=== PATIENT | male | born 1985 | race Caucasian/White ===

== ENCOUNTER 2017-07-16 10:12 | Inpatient (IN) | payer OTHER ==
[~2017-07-16 10:12] MED LIST: ACETAMINOPHEN 1000 MG/100 ML IVPB; ROCURONIUM 50 MG INJ
[2017-07-16] MEDS ORDERED: MIDAZOLAM 1 MG/ML 2 ML INJ (11:36)
[2017-07-16] MEDS ORDERED: PROPOFOL 100 ML ×3 (11:36→15:40)
[2017-07-16] MEDS ORDERED: ROCURONIUM 50 MG INJ (11:36)
[2017-07-16] MEDS ORDERED: GELATIN SIZE 100 SPONGE (11:45)
[2017-07-16] MEDS ORDERED: BUPIVACAINE 0.5% (SDV) 30 ML INJ (11:46)
[2017-07-16] MEDS ORDERED: CEFAZOLIN 1 GM INJ ×2 (11:50→16:07)
[2017-07-16] MEDS ORDERED: SODIUM CL BACTERIOSTATIC 30 ML INJ (11:53)
[2017-07-16] MEDS ORDERED: LABETALOL HCL 20MG INJ IV (12:00)
[2017-07-16] MEDS ORDERED: ONDANSETRON 4 MG INJ IV (12:00)
[2017-07-16] MEDS ORDERED: HYDROmorphONE (0.2 MG/ML) 10ML SYG IV ×3 (12:00)
[2017-07-16] MEDS ORDERED: FENTAnyl 50 MCG/ML VIAL IV ×2 (12:00)
[2017-07-16] MEDS ORDERED: OXYCODONE/ACETAMINOPHEN (5/325) TAB PO ×2 (12:00)
[2017-07-16] MEDS ORDERED: METOCLOPRAMIDE 10 MG INJ IV (12:00)
[2017-07-16] MEDS ORDERED: ALBUMIN HUMAN 5% 250 ML IV (12:00)
[2017-07-16] MEDS ORDERED: EPHEDrine SULFATE 50 MG/5 ML SYG IV (12:00)
[2017-07-16] MEDS: D5W-0.45 NACL + KCL 20 MEQ 1,000 ML IV ×3 (14:21→23:47)
[2017-07-16] MEDS ORDERED: NALOXONE (0.4 MG/ML) INJ IV (14:30)
[2017-07-16] MEDS ORDERED: HYDROmorphONE 0.5 MG/0.5 ML SYG IV (14:30)
[2017-07-16] MEDS ORDERED: CEPASTAT LOZENGE MT (14:30)
[2017-07-16] MEDS ORDERED: ZOLPIDEM 5 MG TAB PO (14:30)
[2017-07-16] MEDS ORDERED: ACETAMINOPHEN 325 MG TAB PO (14:30)
[2017-07-16] MEDS ORDERED: DEXAMETHASONE 4 MG/ML 1 ML INJ (14:30)
[2017-07-16] MEDS ORDERED: METOCLOPRAMIDE 10 MG INJ (14:30)
[2017-07-16] MEDS ORDERED: AL HYDROX/MG HYDROX/SIMETH 30 ML CUP PO (14:30)
[2017-07-16] MEDS ORDERED: DIPHENHYDRAMINE 50 MG INJ IV (14:30)
[2017-07-16] MEDS ORDERED: ONDANSETRON 4 MG INJ (14:30)
[2017-07-16] MEDS ORDERED: BISACODYL 10 MG SUPP PR (14:30)
[2017-07-16] MEDS ORDERED: ACETAMINOPHEN 1000MG/100ML IV 100 ML (14:37)
[2017-07-16] MEDS: SURGIFOAM POWDER 1 GM KIT (15:34)
[2017-07-16] MEDS: HEPARIN 1000 UNITS/ML 10 ML INJ ×2 (15:34→15:35)
[2017-07-16] MEDS: CEFAZOLIN 1 GM INJ (15:34)
[2017-07-16] MEDS: THROMBIN 5000 UNIT VIAL ×2 (15:35→15:36)
[2017-07-16] MEDS: LIDOCAINE 1%/EPI 30 ML INJ (15:37)
[2017-07-16] MEDS ORDERED: SUGAMMADEX SODIUM 200 MG/2 ML VIAL IV (16:03)
[2017-07-16] MEDS ORDERED: PHENYLephrine (100 MCG/ML) 5ML SYG (16:08)
[2017-07-16] MEDS ORDERED: NALOXONE (0.4 MG/ML) INJ (16:27)
[2017-07-16] MEDS: MEPERIDINE 25 MG INJ IV (16:47)
[2017-07-16] MEDS: FENTAnyl 50 MCG/ML VIAL IV ×2 (17:08→17:15)
[2017-07-16] MEDS: DIPHENHYDRAMINE 50 MG INJ IV (17:11)
[2017-07-16] MEDS: CEFAZOLIN 1 GM/50 ML (PMX) 50 ML IVPB ×2 (17:19→21:59)
[2017-07-16] MEDS: HYDROmorphONE 0.2 MG/ML PCA IV (17:28)
[2017-07-16] MEDS: DOCUSATE SODIUM 100 MG CAP PO (20:17)
[2017-07-17 05:15] LABS: ADD MAN DIFF? NO
[2017-07-17 05:16] LABS: HEMATOCRIT 36.5 % (42.0-52.0); HEMOGLOBIN 12.8 g/dl (14.0-18.0); LYMPHOCYTES # 0.8 10^3/ul (0.8-2.9); LYMPHOCYTES % 7.5 % (15.0-51.0); MEAN CORPUSCULAR HEMOGLOBIN 30.6 pg (29.0-33.0); MEAN CORPUSCULAR HGB CONC 35.1 g/dl (32.0-37.0); MEAN CORPUSCULAR VOLUME 87.3 fl (82.0-101.0); MEAN PLATELET VOLUME 10.4 fl (7.4-10.4); MONOCYTE # 0.7 10^3/ul (0.3-0.9); MONOCYTES % 6.1 % (0.0-11.0); NEUTROPHIL # 9.3 10^3/ul (1.6-7.5); NEUTROPHILS % 86.1 % (39.0-77.0); PLATELET COUNT 195 10^3/UL (140-415); RED BLOOD COUNT 4.18 10^6/ul (4.70-6.10); RED CELL DISTRIBUTION WIDTH 12.2 % (11.5-14.5)
[2017-07-17 05:16] LABS: WHITE BLOOD COUNT 10.8 10^3/ul (4.8-10.8)
[2017-07-17 05:56] LABS: ANION GAP 17 (8-16); BLOOD UREA NITROGEN 12 mg/dl (7-20); CALCIUM 8.8 mg/dl (8.4-10.2); CARBON DIOXIDE 27 mmol/L (21-31); CHLORIDE 103 mmol/L (97-110); CREATININE 0.93 mg/dl (0.61-1.24); GLUCOSE 166 mg/dl (70-220); MAGNESIUM 1.6 mg/dl (1.7-2.5); POTASSIUM 4.2 mmol/L (3.5-5.1); SODIUM 143 mmol/L (135-144)
[2017-07-17] MEDS: CEFAZOLIN 1 GM/50 ML (PMX) 50 ML IVPB (06:23)
[2017-07-17] MEDS: HYDROmorphONE 0.2 MG/ML PCA IV ×2 (06:30→23:50)
[2017-07-17] MEDS: ONDANSETRON 4 MG INJ IV (06:31)
[2017-07-17] MEDS: DOCUSATE SODIUM 100 MG CAP PO ×2 (09:05→20:16)
[2017-07-17] MEDS: MAGNESIUM OXIDE 400 MG TAB PO ×2 (09:06→20:16)
[2017-07-17] MEDS: D5W-0.45 NACL + KCL 20 MEQ 1,000 ML IV ×2 (10:21→20:21)
[2017-07-17] MEDS: CYCLOBENZAPRINE 10 MG TAB PO (23:41)
[2017-07-18 05:14] LABS: ADD MAN DIFF? NO
[2017-07-18 05:24] LABS: WHITE BLOOD COUNT 9.5 10^3/ul (4.8-10.8)
[2017-07-18 05:24] LABS: BASOPHILS % 0.3 % (0.0-2.0); EOSINOPHILS % 0.2 % (0.0-7.0); HEMATOCRIT 39.2 % (42.0-52.0); HEMOGLOBIN 13.5 g/dl (14.0-18.0); LYMPHOCYTES # 2.6 10^3/ul (0.8-2.9); LYMPHOCYTES % 27.2 % (15.0-51.0); MEAN CORPUSCULAR HEMOGLOBIN 30.5 pg (29.0-33.0); MEAN CORPUSCULAR HGB CONC 34.4 g/dl (32.0-37.0); MEAN CORPUSCULAR VOLUME 88.7 fl (82.0-101.0); MEAN PLATELET VOLUME 10.8 fl (7.4-10.4); MONOCYTE # 0.9 10^3/ul (0.3-0.9); MONOCYTES % 9.1 % (0.0-11.0); PLATELET COUNT 191 10^3/UL (140-415); RED BLOOD COUNT 4.42 10^6/ul (4.70-6.10); RED CELL DISTRIBUTION WIDTH 12.3 % (11.5-14.5)
[2017-07-18 05:46] LABS: ANION GAP 15 (8-16); BLOOD UREA NITROGEN 11 mg/dl (7-20); CALCIUM 9.1 mg/dl (8.4-10.2); CARBON DIOXIDE 33 mmol/L (21-31); CHLORIDE 98 mmol/L (97-110); GLUCOSE 93 mg/dl (70-220); MAGNESIUM 1.9 mg/dl (1.7-2.5); POTASSIUM 4.3 mmol/L (3.5-5.1); SODIUM 142 mmol/L (135-144)
[2017-07-18] MEDS: D5W-0.45 NACL + KCL 20 MEQ 1,000 ML IV ×2 (06:03→16:21)
[2017-07-18] MEDS: MAGNESIUM OXIDE 400 MG TAB PO ×2 (09:39→21:21)
[2017-07-18] MEDS: DOCUSATE SODIUM 100 MG CAP PO ×2 (09:39→21:21)
[2017-07-18] MEDS: HYDROCODONE/APAP (10/325) TAB PO ×3 (09:39→23:47)
[2017-07-18] MEDS ORDERED: HYDROCODONE/APAP (10/325) TAB PO (10:00)
[2017-07-19 05:56] LABS: ADD MAN DIFF? NO
[2017-07-19 05:58] LABS: WHITE BLOOD COUNT 7.3 10^3/ul (4.8-10.8)
[2017-07-19 05:58] LABS: BASOPHILS % 0.4 % (0.0-2.0); EOSINOPHILS # 0.1 10^3/ul (0.0-0.5); EOSINOPHILS % 1.6 % (0.0-7.0); HEMATOCRIT 38.4 % (42.0-52.0); HEMOGLOBIN 13.2 g/dl (14.0-18.0); LYMPHOCYTES # 2.5 10^3/ul (0.8-2.9); LYMPHOCYTES % 34.2 % (15.0-51.0); MEAN CORPUSCULAR HEMOGLOBIN 30.2 pg (29.0-33.0); MEAN CORPUSCULAR HGB CONC 34.4 g/dl (32.0-37.0); MEAN CORPUSCULAR VOLUME 87.9 fl (82.0-101.0); MEAN PLATELET VOLUME 10.4 fl (7.4-10.4); MONOCYTE # 0.8 10^3/ul (0.3-0.9); MONOCYTES % 10.6 % (0.0-11.0); NEUTROPHIL # 3.9 10^3/ul (1.6-7.5); NEUTROPHILS % 52.9 % (39.0-77.0); PLATELET COUNT 195 10^3/UL (140-415); RED BLOOD COUNT 4.37 10^6/ul (4.70-6.10); RED CELL DISTRIBUTION WIDTH 11.7 % (11.5-14.5)
[2017-07-19 06:42] LABS: ANION GAP 16 (8-16); BLOOD UREA NITROGEN 14 mg/dl (7-20); CARBON DIOXIDE 33 mmol/L (21-31); CHLORIDE 99 mmol/L (97-110); CREATININE 0.86 mg/dl (0.61-1.24); GLUCOSE 88 mg/dl (70-220); POTASSIUM 4.1 mmol/L (3.5-5.1); SODIUM 144 mmol/L (135-144)
[2017-07-19] MEDS: DOCUSATE SODIUM 100 MG CAP PO (09:14)
[2017-07-19] MEDS: HYDROCODONE/APAP (10/325) TAB PO (09:14)
[2017-07-19] MEDS: MAGNESIUM OXIDE 400 MG TAB PO (09:14)
== END 2017-07-19 15:40 | disposition home or self-care (01) | DRG 455 ==
LOC: REC 10:12 → MS1 18:30
PROC: 0SG30A0 Fusion of Lumbosacral Joint with Interbody Fusion Device, Anterior Approach, Anterior Column, Open Approach (ICD-10-PCS; principal; 2017-07-16 12:00)
PROC: 0SG0071 Fusion of Lumbar Vertebral Joint with Autologous Tissue Substitute, Posterior Approach, Posterior Column, Open Approach (ICD-10-PCS; 2017-07-16 12:00)
PROC: 0ST40ZZ Resection of Lumbosacral Disc, Open Approach (ICD-10-PCS; 2017-07-16 12:00)
PROC: 07DR3ZZ Extraction of Iliac Bone Marrow, Percutaneous Approach (ICD-10-PCS; 2017-07-16 12:00)
DX: M51.37 Other intervertebral disc degeneration, lumbosacral region (principal); M48.07 Spinal stenosis, lumbosacral region; M43.17 Spondylolisthesis, lumbosacral region; M53.2X7 Spinal instabilities, lumbosacral region
CPT/HCPCS: 72114; 80048; 83735; 85025; 86850; 86900; 86901; 86920; 86999; 87086; 97116; 97162

== ENCOUNTER → 2017-07-30 | Outpatient (CLI) | payer OTHER | END | disposition home or self-care (01) | LOC: VAS 09:33 | DX: M79.605 Pain in left leg (principal); M79.604 Pain in right leg | CPT/HCPCS: 93970 ==

== ENCOUNTER 2018-06-03 09:49 | Inpatient (IN) | payer OTHER, BC ==
[2018-06-03] MEDS: CEFAZOLIN 2 GM/50 ML (PMX) 50 ML IVPB (09:00)
[~2018-06-03 09:49] MED LIST changes: -ACETAMINOPHEN 1000 MG/100 ML IVPB; +CEFAZOLIN 1 GM INJ; +DESFLURANE 15 MIN; +GLYCOPYRROLATE 0.4 MG INJ; +LACTATED RINGER'S 1,000 ML IV*; +METOPROLOL 5 MG INJ; +NEOSTIGMINE 3 MG/3 ML SYRINGE
[2018-06-03] MEDS ORDERED: FENTAnyl 50 MCG/ML VIAL (09:57)
[2018-06-03] MEDS ORDERED: METOCLOPRAMIDE 10 MG INJ (10:02)
[2018-06-03] MEDS ORDERED: MIDAZOLAM 1 MG/ML 2 ML INJ (10:04)
[2018-06-03] MEDS ORDERED: PROPOFOL 0 ML (10:10)
[2018-06-03] MEDS ORDERED: SUCCINYLCHOLINE CHLORIDE 100 MG/5 ML SYG IV (10:10)
[2018-06-03] MEDS ORDERED: ROCURONIUM 50 MG INJ (10:10)
[2018-06-03] MEDS ORDERED: PROPOFOL 20 ML (10:11)
[2018-06-03] MEDS ORDERED: LIDOCAINE 2% (SDV) 5 ML INJ (10:11)
[2018-06-03] MEDS ORDERED: hydrALAzine 20 MG INJ IV (12:00)
[2018-06-03] MEDS ORDERED: HYDROmorphONE 1 MG/5 ML IV SYRINGE IV (12:00)
[2018-06-03] MEDS ORDERED: FENTAnyl 50 MCG/ML VIAL IV ×2 (12:00)
[2018-06-03] MEDS ORDERED: IPRATROPIUM (NEB) 0.5 MG/2.5 ML AMP HHN (12:00)
[2018-06-03] MEDS ORDERED: LABETALOL HCL 20MG INJ IV (12:00)
[2018-06-03] MEDS ORDERED: LEVALBUTEROL (NEB) 1.25 MG/0.5 ML AMP HHN (12:00)
[2018-06-03] MEDS: CA CHLORIDE 10% 10 ML SYRINGE (13:23)
[2018-06-03] MEDS: BUPIVACAINE 0.5%/EPI (SDV) 30 ML INJ (13:23)
[2018-06-03] MEDS: THROMBIN 5000 UNIT VIAL (13:24)
[2018-06-03] MEDS: HEPARIN 1000 UNITS/ML 10 ML INJ (13:24)
[2018-06-03] MEDS: POLYMYXIN/BACITRACIN 1L IRRIG (13:24)
[2018-06-03] MEDS: SURGIFOAM POWDER 1 GM KIT (13:24)
[2018-06-03] MEDS: BUPIVACAINE 0.25% (MPF) 30 ML INJ (14:32)
[2018-06-03] MEDS: FENTAnyl 50 MCG/ML VIAL (14:33)
[2018-06-03] MEDS: GELATIN SIZE 100 SPONGE (14:33)
[2018-06-03] MEDS ORDERED: CYCLOBENZAPRINE 10 MG TAB PO (15:00)
[2018-06-03] MEDS ORDERED: AL HYDROX/MG HYDROX/SIMETH 30 ML CUP PO (15:00)
[2018-06-03] MEDS ORDERED: NALOXONE (0.4 MG/ML) INJ IV (15:00)
[2018-06-03] MEDS ORDERED: HYDROCODONE/APAP (10/325) TAB PO (15:00)
[2018-06-03] MEDS ORDERED: ONDANSETRON 4 MG INJ IV (15:00)
[2018-06-03] MEDS ORDERED: BISACODYL 10 MG SUPP PR (15:00)
[2018-06-03] MEDS ORDERED: CEPASTAT LOZENGE MT (15:00)
[2018-06-03 15:32] LABS: ADD UMIC NO; UR ASCORBIC ACID NEGATIVE (NEGATIVE); UR BILIRUBIN (Dip) NEGATIVE (NEGATIVE); UR BLOOD (Dip) NEGATIVE (NEGATIVE); UR CLARITY CLEAR (CLEAR); UR COLOR STRAW (YELLOW); UR GLUCOSE (Dip) NEGATIVE (NEGATIVE); UR KETONES (Dip) NEGATIVE (NEGATIVE); UR LEUKOCYTE ESTERASE (Dip) NEGATIVE Leu/ul (NEGATIVE); UR NITRITE (Dip) NEGATIVE (NEGATIVE); UR SPECIFIC GRAVITY (Dip) 1.008 (1.003-1.030); UR TOTAL PROTEIN (Dip) NEGATIVE (NEGATIVE); UR UROBILINOGEN (Dip) NEGATIVE (NEGATIVE)
[2018-06-03] MEDS: HYDROmorphONE 1 MG/5 ML IV SYRINGE IV ×3 (15:35→15:52)
[2018-06-03] MEDS: ONDANSETRON 4 MG INJ IV (15:35)
[2018-06-03] MEDS: CEFAZOLIN 1 GM/50 ML (PMX) 50 ML IVPB ×2 (15:36→22:04)
[2018-06-03] MEDS: HYDROmorphONE 0.2 MG/ML PCA IV (15:37)
[2018-06-03] MEDS: DIPHENHYDRAMINE 50 MG INJ IV (15:51)
[2018-06-03] MEDS: MEPERIDINE 25 MG INJ IV (16:00)
[2018-06-03] MEDS: D5W-0.45 NACL + KCL 20 MEQ 1,000 ML IV (17:38)
[2018-06-03] MEDS: DOCUSATE SODIUM 100 MG CAP PO (22:04)
[2018-06-04] MEDS: D5W-0.45 NACL + KCL 20 MEQ 1,000 ML IV ×4 (00:56→20:41)
[2018-06-04] MEDS: HYDROmorphONE 0.2 MG/ML PCA IV ×2 (02:17→09:19)
[2018-06-04] MEDS: HYDROmorphONE 0.5 MG/0.5 ML SYG IV (04:23)
[2018-06-04 05:15] LABS: ADD MAN DIFF? NO
[2018-06-04 05:28] LABS: WHITE BLOOD COUNT 13.5 10^3/ul (4.8-10.8)
[2018-06-04 05:28] LABS: BASOPHILS % 0.1 % (0.0-2.0); HEMATOCRIT 38.5 % (42.0-52.0); HEMOGLOBIN 13.1 g/dl (14.0-18.0); LYMPHOCYTES # 1.1 10^3/ul (0.8-2.9); LYMPHOCYTES % 7.8 % (15.0-51.0); MEAN CORPUSCULAR HEMOGLOBIN 30.2 pg (29.0-33.0); MEAN CORPUSCULAR VOLUME 88.7 fl (82.0-101.0); MEAN PLATELET VOLUME 10.7 fl (7.4-10.4); MONOCYTE # 0.9 10^3/ul (0.3-0.9); MONOCYTES % 6.6 % (0.0-11.0); NEUTROPHIL # 11.5 10^3/ul (1.6-7.5); NEUTROPHILS % 85.1 % (39.0-77.0); PLATELET COUNT 224 10^3/UL (140-415); RED BLOOD COUNT 4.34 10^6/ul (4.70-6.10); RED CELL DISTRIBUTION WIDTH 12.5 % (11.5-14.5)
[2018-06-04] MEDS: CEFAZOLIN 1 GM/50 ML (PMX) 50 ML IVPB (05:53)
[2018-06-04] MEDS: PANTOPRAZOLE 40 MG INJ IV (05:53)
[2018-06-04 06:22] LABS: ANION GAP 10 (5-13); BLOOD UREA NITROGEN 11 mg/dl (7-20); CALCIUM 9.3 mg/dl (8.4-10.2); CARBON DIOXIDE 28 mmol/L (21-31); CHLORIDE 102 mmol/L (97-110); CREATININE 0.85 mg/dl (0.61-1.24); Estimated GFR > 60 mL/min (>60); GLUCOSE 150 mg/dl (70-220); MAGNESIUM 1.8 mg/dl (1.7-2.5); POTASSIUM 4.8 mmol/L (3.5-5.1); SODIUM 140 mmol/L (135-144)
[2018-06-04] MEDS: DOCUSATE SODIUM 100 MG CAP PO ×2 (09:14→20:41)
[2018-06-05] MEDS: DIPHENHYDRAMINE 50 MG INJ IV (02:35)
[2018-06-05] MEDS: HYDROmorphONE 0.2 MG/ML PCA IV (02:42)
[2018-06-05] MEDS: PANTOPRAZOLE (EC) 40 MG TAB PO (05:58)
[2018-06-05] MEDS: ACETAMINOPHEN 325 MG TAB PO (06:08)
[2018-06-05] MEDS: DOCUSATE SODIUM 100 MG CAP PO (09:00)
[2018-06-05 09:33] LABS: ADD MAN DIFF? NO
[2018-06-05 09:36] LABS: WHITE BLOOD COUNT 10.4 10^3/ul (4.8-10.8)
[2018-06-05 09:36] LABS: BASOPHILS % 0.3 % (0.0-2.0); EOSINOPHILS # 0.1 10^3/ul (0.0-0.5); EOSINOPHILS % 0.8 % (0.0-7.0); HEMATOCRIT 38.6 % (42.0-52.0); HEMOGLOBIN 12.7 g/dl (14.0-18.0); LYMPHOCYTES # 3.1 10^3/ul (0.8-2.9); LYMPHOCYTES % 29.5 % (15.0-51.0); MEAN CORPUSCULAR HEMOGLOBIN 29.9 pg (29.0-33.0); MEAN CORPUSCULAR HGB CONC 32.9 g/dl (32.0-37.0); MEAN CORPUSCULAR VOLUME 90.8 fl (82.0-101.0); MEAN PLATELET VOLUME 10.1 fl (7.4-10.4); MONOCYTE # 0.8 10^3/ul (0.3-0.9); MONOCYTES % 7.2 % (0.0-11.0); NEUTROPHIL # 6.4 10^3/ul (1.6-7.5); PLATELET COUNT 219 10^3/UL (140-415); RED BLOOD COUNT 4.25 10^6/ul (4.70-6.10); RED CELL DISTRIBUTION WIDTH 12.4 % (11.5-14.5)
[2018-06-05] MEDS: HYDROCODONE/APAP (10/325) TAB PO (15:14)
== END 2018-06-05 15:45 | disposition home or self-care (01) | DRG 517 ==
LOC: REC 09:49 → MS1 17:04
PROC: 01NB0ZZ Release Lumbar Nerve, Open Approach (ICD-10-PCS; principal; 2018-06-03 12:00)
DX: M43.17 Spondylolisthesis, lumbosacral region (principal); M48.07 Spinal stenosis, lumbosacral region; M54.17 Radiculopathy, lumbosacral region
CPT/HCPCS: 72100; 80048; 81003; 83735; 85025; 86999; 87086; 88304; 88311; 97116; 97161; 97530